=== PATIENT | female | born 1955 | race Caucasian/White ===

== ENCOUNTER 2016-11-11 16:10 | Outpatient (RCR) | payer OTHER ==
[~2016-11-11 16:10] MED LIST: BUSP5TAB59 PO; CYCL5TAB PO; DULO60CA6 PO; HYDR-757 PO; LOSA50TA36 PO; MELO7.5T46 PO; PRD20T PO
== END 2016-11-12 14:32 | disposition home or self-care (01) ==
PROVIDERS: ATTEND Pain Medicine Pain Medicine
DX: M54.5 Low back pain (principal); M53.3 Sacrococcygeal disorders, not elsewhere classified

== ENCOUNTER 2017-03-04 12:23 | Outpatient (RCR) | payer OTHER | END 2017-03-04 17:00 | disposition home or self-care (01) | PROVIDERS: ATTEND Surgery | DX: Z02.71 Encounter for disability determination (principal) ==

== ENCOUNTER → 2018-09-02 | Outpatient (CLI) | payer BC, OTHER ==
[~2018-09-02] MED LIST changes: +HYDR-4226 PO; -HYDR-757 PO; -LOSA50TA36 PO; +LOSA50TA7 PO
--- NOTE | 2018-09-02 12:22 | Diagnostic Imaging Report ---
Indication: Routine screening. Comparison is made with prior mammogram from 11/19/2011. 2-D and 3-D bilateral screening mammography was performed with CAD. Both breasts are heterogeneously dense, limiting the sensitivity of mammography. The parenchymal pattern is stable. No mass or malignant appearing microcalcifications are seen. The axillae are unremarkable. Impression: BI-RADS category one No mammographic features suspicious for malignancy are identified. ACR BI-RADS Category 1: Negative. Result letter will be mailed to the patient. Note: At least 10% of breast cancer is not imaged by mammography. Dictated by: Dictated on workstation # [id number]
== END ==
LOC: RAD 10:53
PROVIDERS: ATTEND Nurse Practitioner
DX: Z12.31 Encounter for screening mammogram for malignant neoplasm of breast (principal)
CPT/HCPCS: 77067

== ENCOUNTER 2018-12-25 09:44 | Inpatient (IN) | payer OTHER, BC ==
[2018-12-25] VITALS (13 sets, daily range): BP systolic 111–156; BP diastolic 58–83
[~2018-12-25] VITALS: Ht 151.1 cm; Wt 45.5 kg
[~2018-12-25 09:44] MED LIST changes: +LOSA50TA63 PO; -LOSA50TA7 PO
--- NOTE | 2018-12-25 09:54 | NUR ---
Assisted Dr. Gonsalez with rectal exam. Pt has good rectal tone and no gross blood.
[2018-12-25 10:06] LABS: HEMOGLOBIN 14.9 G/DL (11.5-16.0); RED CELL DISTRIBUTION WIDTH 13.8 % (10.0-14.5); WHITE BLOOD COUNT 9.2 10^3/uL (4.3-11.0)
[2018-12-25 10:21] LABS: ALANINE AMINOTRANSFERASE 25 U/L (0-55); ALBUMIN 4.1 GM/DL (3.2-4.5); ALKALINE PHOSPHATASE 85 U/L (40-136); BILIRUBIN,DIRECT 0.1 MG/DL (0.0-0.3); BILIRUBIN,INDIRECT 0.3 MG/DL; BILIRUBIN,TOTAL 0.4 MG/DL (0.1-1.0); BUN/CREATININE RATIO 17; CALCIUM 9.1 MG/DL (8.5-10.1); CARBON DIOXIDE 24 MMOL/L (21-32); CHLORIDE 107 MMOL/L (98-107); CREATININE SERUM 0.76 MG/DL (0.60-1.30); GFR ESTIMATED > 60; GLUCOSE 116 MG/DL (70-105); POTASSIUM 4.1 MMOL/L (3.6-5.0); SODIUM 142 MMOL/L (135-145); TOTAL PROTEIN 6.7 GM/DL (6.4-8.2)
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
[2018-12-25] MEDS ORDERED: fentaNYL INJECTION 100 MCG/2 ML AMP IVP STA (10:28)
[2018-12-25] MEDS ORDERED: fentaNYL INJECTION 100 MCG/2 ML AMP ONE (10:28)
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
[2018-12-25 10:30] LABS: BILIRUBIN,URINE NEGATIVE (NEGATIVE); CLARITY,URINE CLEAR; COLOR,URINE YELLOW; GLUCOSE, URINE (UA) NEGATIVE (NEGATIVE); KETONES,URINE NEGATIVE (NEGATIVE); LEUKOCYTE ESTERASE ,URINE NEGATIVE (NEGATIVE); NITRITE,URINE NEGATIVE (NEGATIVE); PH,URINE 6.5 (5-9); PROTEIN,URINE 3+ (NEGATIVE); UROBILINOGEN,URINE NORMAL (NORMAL)
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
[2018-12-25 10:38] LABS: BACTERIA,URINE TRACE /HPF; SQUAMOUS EPITHELIAL CELL,UR RARE /HPF; WBC,URINE RARE /HPF
[2018-12-25] MEDS ORDERED: LIDOCAINE 1% INJ 20 ML 20 ML VIAL INJ ONE (11:00)
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
--- NOTE | 2018-12-25 11:28 | NUR ---
C-COLLAR REMOVED BY RENETTA COYNE AT THIS TIME
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
--- NOTE | 2018-12-25 11:36 | NUR ---
DR GONZALEZ IN ROOM WITH PT
[2018-12-25] MEDS ORDERED: TETANUS,DIPTH,PERTUSS P/F (BOOSTRIX) 0.5 ML VIAL IM ONE (11:45)
[2018-12-25] MEDS ORDERED: ceFAZolin INJECTION 1,000 MG in WATER (STERILE) FOR INJECTION 10 ML IV ONE (11:45)
--- OUTSIDE RECORDS SUMMARY | 2018-12-25 11:55 | XMS REPORT ---
Author Author CHLOE UP Organization e[employer] Address Unknown Phone Unavailable Care Team Providers Care Laser Systems Engineer Name Role Phone CHLOE UP CP Unavailable Allergies, Adverse Reactions, Alerts Substance Reaction Event Type N.K.D.A. Info Not Available Non Drug Allergy Problems Problem Type Condition Code Onset Dates Condition Status Assessment Right shoulder pain M25.511 Active Problem Tobacco abuse Z72.0 Active Assessment Neck pain M54.2 Active Problem Right shoulder pain M25.511 Active Problem Right elbow pain M25.521 Active Problem Neck pain M54.2 Active Problem High blood pressure (not hypertension) R03.0 Active Problem Alcohol abuse F10.10 Active Problem Right knee pain M25.561 Active Problem Anxiety F41.9 Active Assessment High blood pressure (not hypertension) R03.0 Active Assessment Anxiety F41.9 Active Assessment Tobacco abuse Z72.0 Active Assessment Right knee pain M25.561 Active Assessment Alcohol abuse F10.10 Active Assessment Right elbow pain M25.521 Active Medications Medication Code System Code Instructions Start Date End Date Status Dosage ibuprofen NDC 0 Oral PRN not defined Claritin [facility] [address]-79 10 MG Orally Once a day 1 tablet Paxil [facility] [address]-81 20 MG Orally Once a day 1 tablet in the morning Naproxen [facility] [address]-25 500 MG Orally every 12 hrs Aug 22, 2015Aug 1 tablet as needed Ocuvite Adult 50+ [facility] [address]-45 1 tablet Orally not defined immodium NDC 0 not defined Procedures Procedure Coding System Code Date Office Visit, Est Pt., Level 3 CPT-4 66762 Aug 22, 2015 X-RAY EXAM OF NECK SPINE CPT-4 32091 Aug 22, 2015 Vital Signs Date/Time: Aug 22, 2015 Temperature 98.2 F Weight 105.6 lbs Height 59.5 in BMI 20.97 Index Blood Pressure Diastolic 82 mmHg Blood Pressure Systolic 170 mmHg Cardiac Monitoring Heart Rate 100 bpm Results No Known Results Summary Purpose eClinicalWorks Submission
--- OUTSIDE RECORDS SUMMARY | 2018-12-25 11:56 | XMS REPORT ---
Author FRANNY Sibley [facility] [place] eClinical[employer] Address Unknown Phone Unavailable Care Team Providers Care Appliance Installer Name Role Phone FRANNY BUCIO CP Unavailable Allergies, Adverse Reactions, Alerts Substance Reaction Event Type N.K.D.A. Info Not Available Non Drug Allergy Problems Problem Type Condition Code Onset Dates Condition Status Assessment Cervical disc disease M50.90 Active Assessment Depression F32.9 Active Assessment Nicotine dependence F17.200 Active Problem Nicotine dependence F17.200 Active Problem Cervical disc disease M50.90 Active Problem Depression F32.9 Active Problem Arthritis of both hands M19.90 Active Assessment Essential hypertension I10 Active Problem Essential hypertension I10 Active Problem Dyslipidemia E78.5 Active Medications Medication Code System Code Instructions Start Date End Date Status Dosage Losartan Potassium [facility] [address]-58 50 mg Orally Once a day January 22, 2016 1 tablet Cymbalta [facility] [address]-49 60 MG Orally Once a day 1 capsule Vitamin E [facility] [address]-76 400 UNIT Orally Once a day 1 capsule Loperamide A-D [facility] [address]-31 2 MG Orally 8 time(s) a day 1 tablet Multi For Her 50+ [facility] 15[address]-75174 Orally not defined Ocuvite [facility] [address]-28 Orally not defined BusPIRone HCl [facility] [address]-45 5 MG Orally Three times a day 1 tablet Meloxicam [facility] [address]-78 15 MG Orally Once a day 1 tablet Claritin [facility] [address]-89 10 MG Orally Once a day 1 tablet [place] [facility] [address]-81 7.5-325 MG Orally every 4-6 hrs as needed for pain January 17, 2016 February 16, 2016 1 tablet as needed Procedures Procedure Coding System Code Date Office Visit, Est Pt., Level 4 CPT-4 00279 January 22, 2016 Vital Signs Date/Time: January 22, 2016 Temperature 98.9 F Weight 111 lbs Height 59.5 in BMI 22.04 Index Blood Pressure Diastolic 90 mmHg Blood Pressure Systolic 160 mmHg Cardiac Monitoring Heart Rate 68 bpm Results No Known Results Summary Purpose eClinicalWorks Submission
--- OUTSIDE RECORDS SUMMARY | 2018-12-25 11:56 | XMS REPORT ---
Author Author BANDAR MORALES [facility] Address [address] [place] [address] Care Team Providers Care Military Lawyer Name Role Phone BANDAR MORALES Unavailable PROBLEMS Type Condition ICD9-CM Code [id number] Code Onset Dates Condition Status SNOMED Code Problem Essential hypertension I10 Active 85268980 Problem Dyslipidemia E78.5 Active 067171118 Problem Carpal tunnel syndrome G56.00 Active 07852925 Problem Pain in right shoulder M25.511 Active 00548664 Problem Cervical disc disease M50.90 Active 474480498 Problem Arthritis of both hands M19.90 Active 7045088781004898 Problem Depression F32.9 Active 40749297 Problem Nicotine dependence F17.200 Active 26725824 ALLERGIES No Information SOCIAL HISTORY Never Assessed PLAN OF CARE Activity Details Follow Up prn Reason: VITAL SIGNS Height 59.5 in 2016-12-04 Blood pressure systolic 142 mmHg 2016-12-04 Blood pressure diastolic 82 mmHg 2016-12-04 MEDICATIONS Unknown Medications RESULTS No Results PROCEDURES Procedure Date Ordered Result Body Site JOINT INJECTION-INTERMEDIATE JOINT 2016-12-04 N/A DRAIN/INJECT, JOINT/BURSA December 04, 2016 DEPO MEDROL 80 MG/ML December 04, 2016 IMMUNIZATIONS No Known Immunizations MEDICAL (GENERAL) HISTORY Type Description Date Medical History Fuch's dystrophy Medical History lichen sclerosus Medical History Essential hypertension Medical History Carpel Tunnel Surgical History tubal ligation 1988 Hospitalization History childbirth only
--- OUTSIDE RECORDS SUMMARY | 2018-12-25 11:56 | XMS REPORT ---
Author Author FRANNY BUCIO [facility] Address [address] [place] [address] Care Team Providers Care Fire Watcher Name Role Phone FRANNY BUCIO Unavailable PROBLEMS Type Condition ICD9-CM Code [id number] Code Onset Dates Condition Status SNOMED Code Problem Depression F32.9 Active 54040202 Problem Nicotine dependence F17.200 Active 75277919 Problem Dyslipidemia E78.5 Active 829268151 Problem Arthritis of both hands M19.90 Active 6059726911988786 Problem Cervical disc disease M50.90 Active 097552721 Problem Essential hypertension I10 Active 64848386 ALLERGIES Unknown Allergies SOCIAL HISTORY No smoking Hx information available PLAN OF CARE VITAL SIGNS MEDICATIONS Unknown Medications RESULTS No Results PROCEDURES No Known procedures IMMUNIZATIONS No Known Immunizations
--- OUTSIDE RECORDS SUMMARY | 2018-12-25 11:56 | XMS REPORT ---
Author BANDAR Ledesma [facility] eClinicalWorks Address Unknown Phone Unavailable Care Team Providers Care Source Inspector Name Role Phone BANDAR MORALES CP Unavailable Allergies No Known Allergies Problems Problem Type Condition Code Onset Dates Condition Status Problem Dyslipidemia E78.5 Active Problem Arthritis of both hands M19.90 Active Problem Essential hypertension I10 Active Assessment Radiculopathy of cervical spine M54.12 Active Medications Medication Code System Code Instructions Start Date End Date Status Dosage [place] [facility] [address]-39 7.5-325 MG Orally every 4-6 hrs as needed for pain January 17, 2016 February 16, 2016 1 tablet as needed Procedures Procedure Coding System Code Date Office Visit, Est Pt., Level 3 CPT-4 74375 January 17, 2016 Vital Signs Date/Time: January 17, 2016 Blood Pressure Diastolic 78 mmHg Blood Pressure Systolic 174 mmHg Height 59.5 in Results No Known Results Summary Purpose eClinicalWorks Submission
--- OUTSIDE RECORDS SUMMARY | 2018-12-25 11:56 | XMS REPORT ---
Author Author STEVAN CHAVES Organization e[employer] Address Unknown Phone Unavailable Care Team Providers Care Clinical Support Tech Name Role Phone STEVAN CHAVES CP Unavailable Allergies No Known Allergies Problems Problem Type Condition Code Onset Dates Condition Status Problem Tobacco abuse Z72.0 Active Problem Right shoulder pain M25.511 Active Problem Right elbow pain M25.521 Active Problem Neck pain M54.2 Active Problem High blood pressure (not hypertension) R03.0 Active Problem Alcohol abuse F10.10 Active Problem Right knee pain M25.561 Active Problem Anxiety F41.9 Active Medications Medication Code System Code Instructions Start Date End Date Status Dosage Naproxen [facility] [address]-65 500 MG Orally every 12 hrs Aug 22, 2015Aug 1 tablet as needed ibuprofen NDC 0 Oral PRN not defined Paxil [facility] [address]-29 20 MG Orally Once a day 1 tablet in the morning Claritin [facility] [address]-92 10 MG Orally Once a day 1 tablet immodium NDC 0 not defined Ocuvite Adult 50+ [facility] [address]-34 1 tablet Orally not defined Vital Signs Date/Time: Aug 28, 2015 Blood Pressure Systolic 142 mmHg Cardiac Monitoring Heart Rate 80 bpm Height 59.5 in Blood Pressure Diastolic 83 mmHg Results No Known Results Summary Purpose eClinicalWorks Submission
--- OUTSIDE RECORDS SUMMARY | 2018-12-25 11:56 | XMS REPORT ---
Author FRANNY Sibley Organization eClinical[employer] Address Unknown Phone Unavailable Care Team Providers Care Modeling And Simulation Analyst Name Role Phone FRANNY BUCIO CP Unavailable Allergies No Known Allergies Problems Problem Type Condition Code Onset Dates Condition Status Assessment Right shoulder pain M25.511 Active Problem Depression F32.9 Active Problem Nicotine dependence F17.200 Active Problem Pain in right shoulder M25.511 Active Problem Dyslipidemia E78.5 Active Problem Arthritis of both hands M19.90 Active Problem Cervical disc disease M50.90 Active Problem Essential hypertension I10 Active Medications Medication Code System Code Instructions Start Date End Date Status Dosage Hydrocodone-Acetaminophen [facility] [address]-37 7.5-325 MG Orally every 6 hrsprn pain Jun 23, 2016 1 tablet as needed Results No Known Results Summary Purpose eClinicalWorks Submission
--- OUTSIDE RECORDS SUMMARY | 2018-12-25 11:56 | XMS REPORT ---
Author CHLOE Angel Organization eClinicalWorks Address Unknown Phone Unavailable Care Team Providers Care Public Speaker Name Role Phone CHLOE UP CP Unavailable Allergies, Adverse Reactions, Alerts Substance Reaction Event Type N.K.D.A. 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 Problem Neck pain M54.2 Active Problem Anxiety associated with depression F41.8 Active Problem Alcohol abuse F10.10 Active Problem Tobacco abuse Z72.0 Active Problem Anxiety F41.9 Active Problem High blood pressure (not hypertension) R03.0 Active Assessment Essential hypertension I10 Active Assessment Right shoulder pain M25.511 Active Assessment Primary osteoarthritis of left hand M19.042 Active Assessment Anxiety associated with depression F41.8 Active Medications Medication Code System Code Instructions Start Date End Date Status Dosage Meloxicam [facility] [address]-04 15 MG Orally Once a day Oct 09, 2015January 1 tablet Lisinopril [facility] [address]-59 20 MG Orally Once a day Oct 09, 2015 1 tablet Cymbalta [facility] [address]-35 60 MG Orally Once a day Sep 07, 2015 1 capsule Atorvastatin Calcium [facility] [address]-31 40 MG Orally Once a day Sep 12, 2015 1 tablet BusPIRone HCl [facility] [address]-12 5 MG Orally Twice a day as needed for anxiety Sep 07, 2015 1 tablet Procedures Procedure Coding System Code Date Office Visit, Est Pt., Level 3 CPT-4 97554 Oct 09, 2015 Vital Signs Date/Time: Oct 09, 2015 Temperature 98.0 F Weight 106.3 lbs Height 59.5 in BMI 21.11 Index Blood Pressure Diastolic 88 mmHg Blood Pressure Systolic 155 mmHg Cardiac Monitoring Heart Rate 88 bpm Results No Known Results Summary Purpose eClinicalWorks Submission
--- OUTSIDE RECORDS SUMMARY | 2018-12-25 11:56 | XMS REPORT ---
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
--- OUTSIDE RECORDS SUMMARY | 2018-12-25 11:56 | XMS REPORT ---
Author Author FRANNY BUCIO [facility] Address [address] [place] [address] Care Team Providers Care Electroencephalographic Technician Name Role Phone FRANNY BUCIO Unavailable PROBLEMS Type Condition ICD9-CM Code NOC06-SF Code Onset Dates Condition Status SNOMED Code Assessment Other chronic pain G89.29 Jun, Active 62179288 Problem Arthritis of both hands M19.90 Active 2329379470711971 Assessment Cervical disc disease M50.90 Jun, Active 468410300 Problem Pain in right shoulder M25.511 Active 69010793 Problem Depression F32.9 Active 29688769 Problem Essential hypertension I10 Active 46787812 Problem Dyslipidemia E78.5 Active 275720987 Problem Nicotine dependence F17.200 Active 09204993 Problem Cervical disc disease M50.90 Active 646057411 ALLERGIES Substance Reaction Event Type Date Status N.K.D.A. Unknown Non Drug Allergy Jun, Unknown SOCIAL HISTORY No smoking Hx information available PLAN OF CARE VITAL SIGNS Height 59.5 in 2016-06-23 Weight 107 lbs 2016-06-23 Heart Rate 64 bpm 2016-06-23 Respiratory Rate 20 2016-06-23 BMI 21.25 kg/m2 2016-06-23 Blood pressure systolic 132 mmHg 2016-06-23 Blood pressure diastolic 80 mmHg 2016-06-23 MEDICATIONS Medication Instructions Dosage Frequency Start Date End Date Duration Status Multi For Her 50+ Active Hydrocodone-Acetaminophen 7.5-325 MG Orally every 6 hrsprn pain 1 tablet as needed Jun, Active Ocuvite Active Claritin 10 MG Orally Once a day 1 tablet 24h Active BusPIRone HCl 5 mg Orally Three times a day 1 tablet 8h 30 days Active Losartan Potassium 50 mg Orally Once a day 1 tablet 24h 30 Active RESULTS No Results PROCEDURES Procedure Date Ordered Related Diagnosis Body Site Office Visit, Est Pt., Level 4 Jun 23, 2016 IMMUNIZATIONS No Known Immunizations
--- OUTSIDE RECORDS SUMMARY | 2018-12-25 11:56 | XMS REPORT ---
Author Author BANDAR MORALES [facility] Address [address] [place] [address] Care Team Providers Care Insurance Policy Issue Clerk Name Role Phone BANDAR MORALES Unavailable PROBLEMS Type Condition ICD9-CM Code [id number] Code Onset Dates Condition Status SNOMED Code Problem Essential hypertension I10 Active 48231478 Problem Dyslipidemia E78.5 Active 229998675 Problem Carpal tunnel syndrome G56.00 Active 93807677 Problem Pain in right shoulder M25.511 Active 97834827 Problem Cervical disc disease M50.90 Active 437921268 Problem Arthritis of both hands M19.90 Active 4423961039432551 Problem Depression F32.9 Active 84477809 Problem Nicotine dependence F17.200 Active 95911542 ALLERGIES Unknown Allergies SOCIAL HISTORY No smoking Hx information available PLAN OF CARE Activity Details Follow Up 6 Weeks Reason: VITAL SIGNS Height 59.5 in 2016-10-02 Blood pressure systolic 138 mmHg 2016-10-02 Blood pressure diastolic 78 mmHg 2016-10-02 MEDICATIONS Unknown Medications RESULTS No Results PROCEDURES Procedure Date Ordered Related Diagnosis Body Site DRAIN/INJECT, JOINT/BURSA Oct 02, 2016 Office Visit, Est Pt., Level 3 Oct 02, 2016 DEPO MEDROL 80 MG/ML Oct 02, 2016 IMMUNIZATIONS No Known Immunizations
--- OUTSIDE RECORDS SUMMARY | 2018-12-25 11:56 | XMS REPORT ---
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
--- OUTSIDE RECORDS SUMMARY | 2018-12-25 11:56 | XMS REPORT ---
Author CHLOE Angel Organization eClinicalWorks Address Unknown Phone Unavailable Care Team Providers Care Key Cutter Name Role Phone CHLOE UP CP Unavailable [...] Active Problem Right elbow pain M25.521 Active Assessment Right elbow pain M25.521 Active Assessment Right shoulder pain M25.511 Active Assessment Neck pain M54.2 Active Assessment High blood pressure (not hypertension) R03.0 Active Assessment Anxiety associated with depression F41.8 Active Medications No Known Medications Procedures Procedure Coding System Code Date COMPREHEN METABOLIC PANEL CPT-4 81661 Sep 11, 2015 ASSAY THYROID STIM HORMONE CPT-4 44838 Sep 11, 2015 COMPLETE CBC W/AUTO DIFF WBC CPT-4 37992 Sep 11, 2015 VENIPUNCT, ROUTINE* CPT-4 07640 Sep 11, 2015 LIPID PANEL CPT-4 44144 Sep 11, 2015 Results Name Result Date Reference Range Unit Abnormality Flag ROUTINE VENIPUNCTURE Summary Purpose eClinicalWorks Submission
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
--- OUTSIDE RECORDS SUMMARY | 2018-12-25 11:57 | XMS REPORT ---
Author Author BANDAR MORALES [facility] Address [address] [place] [address] Care Team Providers Care Bar And Filler Assembler Name Role Phone BANDAR MORALES Unavailable PROBLEMS Type Condition ICD9-CM Code BOQ80-DC Code Onset Dates Condition Status SNOMED Code Problem Essential hypertension I10 Active 76310288 Problem Dyslipidemia E78.5 Active 355224375 Problem Carpal tunnel syndrome G56.00 Active 44811715 Problem Pain in right shoulder M25.511 Active 86402555 Problem Cervical disc disease M50.90 Active 238574740 Problem Arthritis of both hands M19.90 Active 1514372105697998 Problem Depression F32.9 Active 29404496 Problem Nicotine dependence F17.200 Active 38287227 ALLERGIES No Information SOCIAL HISTORY Never Assessed PLAN OF CARE Activity Details Follow Up prn Reason: VITAL SIGNS Height 59.5 in 2017-02-19 Blood pressure systolic 128 mmHg 2017-02-19 Blood pressure diastolic 78 mmHg 2017-02-19 MEDICATIONS Unknown Medications RESULTS No Results PROCEDURES Procedure Date Ordered Result Body Site DRAIN/INJECT, JOINT/BURSA February 19, 2017 DEPO MEDROL 80 MG/ML February 19, 2017 IMMUNIZATIONS No Known Immunizations MEDICAL (GENERAL) HISTORY Type Description Date Medical History Fuch's dystrophy Medical History lichen sclerosus Medical History Essential hypertension Medical History Carpel Tunnel Surgical History tubal ligation 1988 Hospitalization History childbirth only
--- OUTSIDE RECORDS SUMMARY | 2018-12-25 11:57 | XMS REPORT ---
Author CHLOE Angel Organization eClinicalWorks Address Unknown Phone Unavailable Care Team Providers Care Dispenser Operator Name Role Phone CHLOE UP CP Unavailable [...] Problem Right elbow pain M25.521 Active Assessment Primary osteoarthritis, right hand M19.041 Active Assessment High blood pressure (not hypertension) R03.0 Active Assessment Neck pain M54.2 Active Assessment Alcohol abuse F10.10 Active Assessment Right elbow pain M25.521 Active Assessment Tobacco abuse Z72.0 Active Assessment Right shoulder pain M25.511 Active Assessment Anxiety associated with depression F41.8 Active Medications Medication Code System Code Instructions Start Date End Date Status Dosage ibuprofen NDC 0 Oral PRN not defined immodium NDC 0 not defined Cymbalta [facility] [address]-23 60 MG Orally Once a day Sep 07, 2015 1 capsule BusPIRone HCl [facility] [address]-14 5 MG Orally Twice a day as needed for anxiety Sep 07, 2015 1 tablet Procedures Procedure Coding System Code Date Office Visit, Est Pt., Level 3 CPT-4 25253 Sep 07, 2015 Vital Signs Date/Time: Sep 07, 2015 Temperature 98.5 F Weight 105 lbs Height 59.5 in BMI 20.85 Index Blood Pressure Diastolic 78 mmHg Blood Pressure Systolic 158 mmHg Cardiac Monitoring Heart Rate 92 bpm Results No Known Results Summary Purpose eClinicalWorks Submission
--- OUTSIDE RECORDS SUMMARY | 2018-12-25 11:57 | XMS REPORT | Continuity of Care Document ---
Author Author [facility] Organization [facility] Address Unknown Phone Unavailable Allergies Active Description Code Type Severity Reaction Onset Reported/Identified Relationship to Patient Clinical Status Yes No Known Drug Allergies [id number] Drug Allergy Unknown N/A 03/17/2016 Medications There is no data. Problems Date Dx Coded Attending Type Code Diagnosis Diagnosed By LEONCIO SCHAEFFER MD Ot M54.2 CERVICALGIA 09/03/1431 LEONCIO SCHAEFFER MD Ot M53.3 SACROCOCCYGEAL DISORDERS, NOT ELSEWHERE 09/03/1431 LEONCIO SCHAEFFER MD Ot M54.5 LOW BACK PAIN 12/19/2015 Ot V76.12 12/19/2015 Ot V76.12 12/20/2015 BANDAR MORALES TECHNOLOGY EDUCATION INSTRUCTOR Ot M48.02 12/20/2015 BANDAR MORALES TECHNOLOGY EDUCATION INSTRUCTOR Ot M50.31 12/20/2015 BANDAR MORALES TECHNOLOGY EDUCATION INSTRUCTOR Ot M50.32 12/21/2015 BANDAR MORALES TECHNOLOGY EDUCATION INSTRUCTOR Ot M48.02 12/21/2015 BANDAR MORALES TECHNOLOGY EDUCATION INSTRUCTOR Ot M50.31 12/21/2015 BANDAR MORALES TECHNOLOGY EDUCATION INSTRUCTOR Ot M50.32 12/21/2015 BANDAR MORALES TECHNOLOGY EDUCATION INSTRUCTOR Ot M48.02 12/21/2015 BANDAR MORALES TECHNOLOGY EDUCATION INSTRUCTOR Ot M50.31 12/21/2015 BANDAR MORALES TECHNOLOGY EDUCATION INSTRUCTOR Ot M50.32 12/26/2015 BANDAR MORALES TECHNOLOGY EDUCATION INSTRUCTOR Ot M48.02 12/26/2015 BANDAR MORALES TECHNOLOGY EDUCATION INSTRUCTOR Ot M50.31 12/26/2015 BANDAR MORALES TECHNOLOGY EDUCATION INSTRUCTOR Ot M50.32 02/19/2016 Ot V76.12 OTH SCREEN MAMMO-MALIGN NEOPLASM OF RUPESH 02/19/2016 Ot V76.12 OTH SCREEN MAMMO-MALIGN NEOPLASM OF RUPESH 02/19/2016 BANDAR MORALES TECHNOLOGY EDUCATION INSTRUCTOR Ot M48.02 SPINAL STENOSIS, CERVICAL REGION 02/19/2016 ANDREW BANDAR D TECHNOLOGY EDUCATION INSTRUCTOR Ot M50.31 OTHER CERVICAL DISC DEGENERATION, HIGH 02/19/2016 BANDAR MORALES TECHNOLOGY EDUCATION INSTRUCTOR Ot M50.32 OTHER CERVICAL DISC DEGENERATION, MID-CE 02/20/2016 BANDAR MORALES TECHNOLOGY EDUCATION INSTRUCTOR Ot M48.02 SPINAL STENOSIS, CERVICAL REGION 02/20/2016 BANDAR MORALES TECHNOLOGY EDUCATION INSTRUCTOR Ot M50.31 OTHER CERVICAL DISC DEGENERATION, HIGH 02/20/2016 MORALESBANDAR Trejo TECHNOLOGY EDUCATION INSTRUCTOR Ot M50.32 OTHER CERVICAL DISC DEGENERATION, MID-CE 02/26/2016 MORALESBANDAR Trejo TECHNOLOGY EDUCATION INSTRUCTOR Ot M48.02 SPINAL STENOSIS, CERVICAL REGION 02/26/2016 BANDAR MORALES TECHNOLOGY EDUCATION INSTRUCTOR Ot M50.31 OTHER CERVICAL DISC DEGENERATION, HIGH 02/26/2016 BANDAR MORALES TECHNOLOGY EDUCATION INSTRUCTOR Ot M50.32 OTHER CERVICAL DISC DEGENERATION, MID-CE 03/14/2016 LEONCIO SCHAEFFER MD Ot M54.2 CERVICALGIA 03/17/2016 RENETTA COYNE APRN Ot S50.361A INSECT BITE (NONVENOMOUS) OF RIGHT ELBOW 03/17/2016 RENETTA COYNE APRN Ot W57.XXXA BIT/STUNG BY NONVENOM INSECT OTH NONVE 03/17/2016 RENETTA COYNE APRN Ot Y92.34 SWIMMING POOL (PUBLIC) PLACE 03/17/2016 RENETTA COYNE APRN Ot Y99.8 OTHER EXTERNAL CAUSE STATUS 03/17/2016 Ot V76.12 OTH SCREEN MAMMO-MALIGN NEOPLASM OF RUPESH 03/17/2016 BANDAR MORALES TECHNOLOGY EDUCATION INSTRUCTOR Ot M48.02 SPINAL STENOSIS, CERVICAL REGION 03/17/2016 BANDAR MORALES TECHNOLOGY EDUCATION INSTRUCTOR Ot M50.31 OTHER CERVICAL DISC DEGENERATION, HIGH 03/17/2016 BANDAR MORALES Ot M50.32 OTHER CERVICAL DISC DEGENERATION, MID-CE 09/18/2016 LEONCIO SCHAEFFER MD Ot M53.3 SACROCOCCYGEAL DISORDERS, NOT ELSEWHERE 09/18/2016 LEONCIO SCHAEFFER MD Ot M54.5 LOW BACK PAIN 09/23/2016 LEONCIO SCHAEFFER MD Ot M53.3 SACROCOCCYGEAL DISORDERS, NOT ELSEWHERE 09/23/2016 LEONCIO SCHAEFFER MD Ot M54.5 LOW BACK PAIN 09/26/2016 LEONCIO SCHAEFFER MD Ot M53.3 SACROCOCCYGEAL DISORDERS, NOT ELSEWHERE 09/26/2016 LEONCIO SCHAEFFER MD Ot M54.5 LOW BACK PAIN 10/04/2016 Ot V76.12 OTH SCREEN MAMMO-MALIGN NEOPLASM OF RUPESH 10/04/2016 BANDAR MORALES Ot M48.02 SPINAL STENOSIS, CERVICAL REGION 10/04/2016 BANDAR MORALES Ot M50.31 OTHER CERVICAL DISC DEGENERATION, HIGH 10/04/2016 BANDAR MORALES Ot M50.32 OTHER CERVICAL DISC DEGENERATION, MID-CE 10/04/2016 LEONCIO SCHAEFFER MD, Ot M53.3 SACROCOCCYGEAL DISORDERS, NOT ELSEWHERE 10/04/2016 LEONCIO SCHAEFFER MD Ot M54.5 LOW BACK PAIN 10/04/2016 LEONCIO SCHAEFFER MD, Ot M53.3 SACROCOCCYGEAL DISORDERS, NOT ELSEWHERE 10/04/2016 LEONCIO SCHAEFFER MD, Ot M54.5 LOW BACK PAIN 10/04/2016 RENETTA COYNE AP OPERATOR Ot S52.514A NONDISP FX OF RIGHT RADIAL STYLOID PROCE 10/04/2016 RENETTA COYNE AP OPERATOR Ot S52.611A DISP FX OF RIGHT ULNA STYLOID PROCESS, I 10/04/2016 RENETTA COYNE AP OPERATOR Ot S69.91XA UNSP INJURY OF RIGHT WRIST, HAND AND FIN 10/04/2016 RENETTA COYNE AP OPERATOR Ot W10.9XXA FALL (ON) (FROM) UNSPECIFIED STAIRS AND 10/04/2016 RENETTA COYNE AP OPERATOR Ot Y99.8 OTHER EXTERNAL CAUSE STATUS 10/04/2016 Ot V76.12 OTH SCREEN MAMMO-MALIGN NEOPLASM OF RUPESH 10/04/2016 BANDAR MORALES Ot M48.02 SPINAL STENOSIS, CERVICAL REGION 10/04/2016 BANDAR MORALES Ot M50.31 OTHER CERVICAL DISC DEGENERATION, HIGH 10/04/2016 BANDAR MORALES Ot M50.32 OTHER CERVICAL DISC DEGENERATION, MID-CE 10/04/2016 LEONCIO SCHAEFFER MD Ot M53.3 SACROCOCCYGEAL DISORDERS, NOT ELSEWHERE 10/04/2016 LEONCIO SCHAEFFER MD Ot M54.5 LOW BACK PAIN 10/04/2016 LEONCIO SCHAEFFER MD, Ot M53.3 SACROCOCCYGEAL DISORDERS, NOT ELSEWHERE 10/04/2016 LEONCIO SCHAEFFER MD, Ot M54.5 LOW BACK PAIN 10/08/2016 RENETTA COYNE APRN Ot S52.514A NONDISP FX OF RIGHT RADIAL STYLOID PROCE 10/08/2016 RENETTA COYNE APRN Ot S52.611A DISP FX OF RIGHT ULNA STYLOID PROCESS, I 10/08/2016 RENETTA COYNE APRN Ot S69.91XA UNSP INJURY OF RIGHT WRIST, HAND AND FIN 10/08/2016 RENETTA COYNE APRN Ot W10.9XXA FALL (ON) (FROM) UNSPECIFIED STAIRS AND 10/08/2016 RENETTA COYNE APRN Ot Y99.8 OTHER EXTERNAL CAUSE STATUS 10/27/2016 LEONCIO SCHAEFFER MD, Ot M53.3 SACROCOCCYGEAL DISORDERS, NOT ELSEWHERE 10/27/2016 LEONCIO SCHAEFFER MD, Ot M54.5 LOW BACK PAIN 10/29/2016 LEONCIO SCHAEFFER MD, Ot M53.3 SACROCOCCYGEAL DISORDERS, NOT ELSEWHERE 10/29/2016 LEONCIO SCHAEFFER MD Ot M54.5 LOW BACK PAIN 11/12/2016 LEONCIO SCHAEFFER MD, Ot M53.3 SACROCOCCYGEAL DISORDERS, NOT ELSEWHERE 11/12/2016 LEONCIO SCHAEFFER MD Ot M54.5 LOW BACK PAIN 02/13/2017 Ot V76.12 OT SCREEN MAMMO-MALIGN NEOPLASM OF RUPESH 02/13/2017 BANDAR MORALESP Ot M48.02 SPINAL STENOSIS, CERVICAL REGION 02/13/2017 BANDAR MORALESP Ot M50.31 OTHER CERVICAL DISC DEGENERATION, HIGH 02/13/2017 BANDAR MORALESP Ot M50.32 OTHER CERVICAL DISC DEGENERATION, MID-CE 02/13/2017 LEONCIO SCHAEFFER MD Ot M53.3 SACROCOCCYGEAL DISORDERS, NOT ELSEWHERE 02/13/2017 LEONCIO SCHAEFFER MD Ot M54.5 LOW BACK PAIN 03/05/2017 YOGI LUNDBERG, RONAN Nguyen ([facility]) Ot Z02.71 ENCOUNTER FOR DISABILITY DETERMINATION 09/02/2018 LEONCIO SCHAEFFER MD, Ot M53.3 SACROCOCCYGEAL DISORDERS, NOT ELSEWHERE 09/02/2018 LEONCIO SCHAEFFER MD Ot M54.5 LOW BACK PAIN 09/03/2018 ALAYNA WORTHY Ot Z12.31 ENCNTR SCREEN MAMMOGRAM FOR MALIGNANT NE Procedures There is no data. Results There is no data. Encounters ACCT No. Visit Date/Time Discharge Status Pt. Type Provider Facility Loc./Unit Complaint [id number] 09/02/2018 10:53:00 09/02/2018 23:59:59 CLS Outpatient ALAYNA WORTHY [facility] RAD SCREENING [id number] 03/04/2017 12:23:00 03/04/2017 17:00:00 DIS Outpatient RONAN CALIX MD (DDU) [facility] REHAB CONGENITAL DEFORMITY OF HANDS/TOES;FUCHS DYSTROPHY [id number] 11/11/2016 16:10:00 11/12/2016 14:32:00 DIS Outpatient LEONCIO SCHAEFFER MD [facility] REHAB LUMBAGO; SACROCOCCYGEAL DISORDER [id number] 10/04/2016 15:48:00 10/04/2016 17:33:00 DIS Emergency RENETTA COYNE AP OPERATOR [facility] ER R WRIST INJ [id number] 09/17/2016 15:35:00 09/17/2016 23:59:59 CLS Outpatient LEONCIO SCHAEFFER MD [facility] RAD XR LUMBAR SPINE, XR SACROLIAC JOINTS [id number] 03/17/2016 22:01:00 03/17/2016 22:27:00 DIS Emergency RENETTA COYNE AP OPERATOR [facility] ER INSECT BITE [id number] 03/13/2016 12:52:00 03/14/2016 09:36:00 DIS Outpatient LEONCIO SCHAEFFER MD [facility] REHAB CERVICALGIA [id number] 12/19/2015 13:11:00 12/19/2015 23:59:59 CLS Outpatient BANDAR MORALES [facility] RAD DISC HERNIATION [id number] 11/19/2011 06:57:00 Document Registration [id number] 09/13/2010 09:34:00 Document Registration
--- OUTSIDE RECORDS SUMMARY | 2018-12-25 11:57 | XMS REPORT ---
Author Author BANDAR MORALES [facility] Address [address] [place] [address] Care Team Providers Care Typing Section Chief Name Role Phone BANDAR MORALES Unavailable PROBLEMS Type Condition ICD9-CM Code HPW36-VY Code Onset Dates Condition Status SNOMED Code Problem Essential hypertension I10 Active 78284969 Problem Dyslipidemia E78.5 Active 725097453 Problem Carpal tunnel syndrome G56.00 Active 03025024 Problem Pain in right shoulder M25.511 Active 25714833 Problem Cervical disc disease M50.90 Active 215442519 Problem Arthritis of both hands M19.90 Active 5482938920085242 Problem Depression F32.9 Active 45232770 Problem Nicotine dependence F17.200 Active 11324734 ALLERGIES No Information SOCIAL HISTORY Never Assessed PLAN OF CARE Activity Details Follow Up prn Reason: VITAL SIGNS Height 59.5 in 2016-11-06 Blood pressure systolic 138 mmHg 2016-11-06 Blood pressure diastolic 78 mmHg 2016-11-06 MEDICATIONS Unknown Medications RESULTS Name Result Date Reference Range Xray : Wrist, Right 3 views (IN HOUSE) 2016-11-06 PROCEDURES Procedure Date Ordered Result Body Site X-RAY EXAM OF WRIST Nov 06, 2016 IMMUNIZATIONS No Known Immunizations MEDICAL (GENERAL) HISTORY Type Description Date Medical History Fuch's dystrophy Medical History lichen sclerosus Medical History Essential hypertension Medical History Carpel Tunnel Surgical History tubal ligation 1988 Hospitalization History childbirth only
--- OUTSIDE RECORDS SUMMARY | 2018-12-25 11:57 | XMS REPORT ---
Author CHLOE Angel Organization [employer] Address Unknown Phone Unavailable Care Team Providers Care Belt Puncher Name Role Phone CHLOE UP CP Unavailable [...] Problem Right elbow pain M25.521 Active Medications Medication Code System Code Instructions Start Date End Date Status Dosage Atorvastatin Calcium [facility] [address]-61 40 MG Orally Once a day Sep 12, 2015 1 tablet Results No Known Results Summary Purpose [employer] Submission
--- OUTSIDE RECORDS SUMMARY | 2018-12-25 11:57 | XMS REPORT ---
Author Author SAMANTHA Brar [facility] Address [address] [place] [address] Care Team Providers Care Newspaper Clipper Name Role Phone schuylerCARLOSKELVIN SAMANTHA Unavailable PROBLEMS Type Condition ICD9-CM Code YQO95-PT Code Onset Dates Condition Status SNOMED Code Problem Essential hypertension I10 Active 50585157 Problem Dyslipidemia E78.5 Active 437508430 Problem Carpal tunnel syndrome G56.00 Active 22823211 Problem Pain in right shoulder M25.511 Active 33313078 Problem Cervical disc disease M50.90 Active 180000852 Problem Arthritis of both hands M19.90 Active 4479993380448157 Problem Depression F32.9 Active 14637111 Problem Nicotine dependence F17.200 Active 52696042 ALLERGIES No Information ENCOUNTERS Encounter Location Date Diagnosis [facility] [address] [address] Apr, [facility] IN [facility] [address] [address] Apr, Eye injury, non-penetrating, right, initial encounter S05.91XA [place] [address] [address] February, Impingement syndrome of right shoulder M75.41 [place] [address] [address] Dec, Impingement syndrome of right shoulder M75.41 and Carpal tunnel syndrome G56.00 [place] [address] [address] 02 Nov, 2016 Impingement syndrome of right shoulder M75.41 and Displaced fracture of distal end of right radius with routine healing, subsequent encounter S52.501D [place] [address] [place] [id number] [place] [address] 16 Oct, 2016 [place] [address] [address] Sep, Impingement syndrome of right shoulder M75.41 [place] [address] [place] [id number] [place] [address] 26 Jul, 2016 Right shoulder pain M25.511 [place] [address] [address] 20 Jun, 2016 Pain in right shoulder M25.511 ; Other chronic pain G89.29 and Pain in left hip M25.552 [place] [address] [address] 19 Jun, 2016 Cervical disc disease M50.90 ; Essential hypertension I10 ; Pain in right shoulder M25.511 ; Other chronic pain G89.29 and Dyslipidemia E78.5 [place] [address] [address] 08 Jun, 2016 [place] [address] [address] 30 Mar, 2016 [place] [address] [address] 03 Mar, 2016 Essential hypertension I10 and Depression F32.9 [place] [address] [address] 02 Mar, 2016 Impingement syndrome of right shoulder M75.41 and Superior glenoid labrum lesion of right shoulder, subsequent encounter S43.431D [place] [address] [address] 19 Jan, 2016 Essential hypertension I10 ; Depression F32.9 ; Nicotine dependence F17.200 and Cervical disc disease M50.90 [place] [address] [address] 14 Jan, 2016 Radiculopathy of cervical spine M54.12 [place] [address] [id number] [id number] 13 Jan, 2016 Encounter for dental examination Z01.20 [place] [address] [place] [id number] [place] [address] Dec, Carpal tunnel syndrome G56.00 and Cervical disc herniation M50.20 [place] [address] [place] [address] Dec, Cervical disc herniation M50.20 ; Impingement syndrome of right shoulder M75.41 and Carpal tunnel syndrome G56.00 [place] [address] [place] [address] Nov, Essential hypertension I10 ; Anxiety associated with depression F41.8 ; Tobacco abuse Z72.0 ; Dyslipidemia E78.5 ; Arthritis of both hands M19.90 ; Pain in right hand M79.641 ; Pain of left hand M79.642 ; Pain in right wrist M25.531 ; Wrist pain, left M25.532 ; History of alcohol abuse Z87.898 ; Right shoulder pain M25.511 ; Right arm pain M79.601 and 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 [place] [address] [place] [address] 15 Nov, 2015 Essential hypertension I10 ; Wrist pain, left M25.532 ; Alcohol abuse F10.10 ; Anxiety associated with depression F41.8 ; Tobacco abuse Z72.0 ; Dyslipidemia E78.5 ; Arthritis of both hands M19.90 ; Pain in right hand M79.641 ; Pain of left hand M79.642 and Pain in right wrist M25.531 [place] [address] [place] [address] Nov, Essential hypertension I10 ; Alcohol abuse F10.10 ; Anxiety associated with depression F41.8 ; Tobacco abuse Z72.0 ; Dyslipidemia E78.5 ; Arthritis of both hands M19.90 ; Pain in right hand M79.641 ; Pain of left hand M79.642 ; Pain in right wrist M25.531 and Wrist pain, left M25.532 [place] [address] [place] [address] Oct, Acute upper respiratory infection, unspecified J06.9 [place] [address] [place] [id number] [place] [address] Oct, Primary osteoarthritis, right hand M19.041 ; Alcohol abuse F10.10 ; Tobacco abuse Z72.0 ; Anxiety associated with depression F41.8 ; Primary osteoarthritis of left hand M19.042 ; Right shoulder pain M25.511 and Essential hypertension I10 [place] [address] [place] [id number] [place] [address] Sep, [place] [address] [place] [id number] [place] [address] Sep, [place] [address] [place] [id number] [place] [address] Sep, Anxiety associated with depression F41.8 ; Neck pain M54.2 ; Right shoulder pain M25.511 ; Right elbow pain M25.521 and High blood pressure (not hypertension) R03.0 [place] [address] [place] [address] Sep, Anxiety associated with depression F41.8 ; Tobacco abuse Z72.0 ; Alcohol abuse F10.10 ; Neck pain M54.2 ; Right shoulder pain M25.511 ; Right elbow pain M25.521 ; High blood pressure (not hypertension) R03.0 and Primary osteoarthritis, right hand M19.041 [facility] [address] [address] Aug, [facility] [address] [place] [id number] [place] [address] Aug, Neck pain M54.2 ; Right shoulder pain M25.511 ; Right elbow pain M25.521 ; Right knee pain M25.561 ; Anxiety F41.9 ; High blood pressure (not hypertension) R03.0 ; Alcohol abuse F10.10 and Tobacco abuse Z72.0 [facility] [address] [facility] [id number] [place] [id number] Mar, Dental examination V72.2 IMMUNIZATIONS No Known Immunizations SOCIAL HISTORY Never Assessed REASON FOR VISIT PLAN OF CARE VITAL SIGNS MEDICATIONS Unknown Medications RESULTS No Results PROCEDURES No Known procedures INSTRUCTIONS MEDICATIONS ADMINISTERED No Known Medications MEDICAL (GENERAL) HISTORY Type Description Date Medical History Fuch's dystrophy Medical History lichen sclerosus Medical History Essential hypertension Medical History Carpel Tunnel Surgical History tubal ligation 1988 Hospitalization History childbirth only
--- OUTSIDE RECORDS SUMMARY | 2018-12-25 11:57 | XMS REPORT ---
Author Author ANJALI PEÑA [facility] Address [address] [place] [address] Care Team Providers Care It Help Desk Technician Name Role Phone ANJALI PEÑA Unavailable PROBLEMS Type Condition ICD9-CM Code MFW57-MU Code Onset Dates Condition Status SNOMED Code Assessment Other chronic pain G89.29 Jun, Active 00374485 Problem Arthritis of both hands M19.90 Active 8318791075284365 Assessment Pain in right shoulder M25.511 Jun, Active 77221915 Assessment Pain in left hip M25.552 Jun, Active 14974692 Problem Pain in right shoulder M25.511 Active 95783929 Problem Depression F32.9 Active 96347187 Problem Essential hypertension I10 Active 68275532 Problem Dyslipidemia E78.5 Active 104648990 Problem Nicotine dependence F17.200 Active 96776786 Problem Cervical disc disease M50.90 Active 340133099 ALLERGIES Substance Reaction Event Type Date Status N.K.D.A. Unknown Non Drug Allergy Jun, Unknown SOCIAL HISTORY No smoking Hx information available PLAN OF CARE VITAL SIGNS Height 59.5 in 2016-06-24 Weight 107 lbs 2016-06-24 Heart Rate 64 bpm 2016-06-24 Respiratory Rate 16 2016-06-24 BMI 21.25 kg/m2 2016-06-24 Blood pressure systolic 122 mmHg 2016-06-24 Blood pressure diastolic 78 mmHg 2016-06-24 MEDICATIONS Medication Instructions Dosage Frequency Start Date End Date Duration Status Claritin 10 MG Orally Once a day 1 tablet 24h Active BusPIRone HCl 5 mg Orally Three times a day 1 tablet 8h 30 days Active Ocuvite Active Multi For Her 50+ Active Hydrocodone-Acetaminophen 7.5-325 MG Orally every 6 hrsprn pain 1 tablet as needed Jun, Active Losartan Potassium 50 mg Orally Once a day 1 tablet 24h 30 Active RESULTS No Results PROCEDURES Procedure Date Ordered Related Diagnosis Body Site JOINT INJECTION-LARGE JOINT 2016-06-24 N/A DRAIN/INJECT, JOINT/BURSA Jun 24, 2016 Office Visit, Est Pt., Level 2 Jun 24, 2016 IMMUNIZATIONS No Known Immunizations
[2018-12-25] MEDS ORDERED: HYDROmorphone 2 MG/ML VIAL (DILAUDID) IV ONE (12:00)
[2018-12-25] MEDS ORDERED: ceFAZolin INJECTION 1,000 MG ONE (12:12)
[2018-12-25] MEDS ORDERED: WATER (STERILE) FOR INJECTION 10 ML ONE (12:12)
[2018-12-25 14:12] LABS: HEMOGLOBIN 14.3 G/DL (11.5-16.0); MEAN PLATELET VOLUME 10.1 FL (7.4-10.4); RED CELL DISTRIBUTION WIDTH 13.9 % (10.0-14.5); WHITE BLOOD COUNT 18.7 10^3/uL (4.3-11.0)
[2018-12-25] MEDS: fentaNYL INJECTION 100 MCG/2 ML AMP IV PRN ×5 (14:41→22:38)
[2018-12-25] MEDS ORDERED: ONDANSETRON 4 MG/2 ML (SDV) Z0FRAN IV PRN (14:45)
[2018-12-25] MEDS ORDERED: FLU QUADRIvalent (5+ YOA) 2018-2019 (AFLURIA) 0.5 ML IM ONE (14:45)
[2018-12-25] MEDS ORDERED: NS 1000 ML IV BAG IV SCH (17:15)
--- NOTE | 2018-12-25 17:51 | NUR ---
CALL PLACED TO EICU REQUESTING STRONGER PAIN MEDICATION ET ADVANCE OF DIET. AWAITING RESPONSE FROM PHYSICIAN
[2018-12-25] MEDS ORDERED: HYDROcodone/APAP 5 MG/325 MG (LORTAB) TAB PO PRN (18:15)
[2018-12-25] MEDS: NS IV 1000 ML 1,000 ML IV SCH (18:47)
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
[2018-12-25] MEDS ORDERED: RT-ALBUTEROL/IPRATROPIUM 3 ML (DUONEB) VIAL INH SCH (21:00)
[2018-12-25] MEDS: HYDROcodone/APAP 5 MG/325 MG (LORTAB) TAB PO PRN (22:37)
[2018-12-26] VITALS (12 sets, daily range): BP systolic 119–165; BP diastolic 61–85
[2018-12-26] MEDS: HYDROcodone/APAP 5 MG/325 MG (LORTAB) TAB PO PRN ×3 (01:54→11:25)
[2018-12-26] MEDS: fentaNYL INJECTION 100 MCG/2 ML AMP IV PRN ×4 (01:54→11:53)
[2018-12-26 03:55] LABS: BASOPHILS % (AUTO) 0 % (0-10); EOSINOPHILS # (AUTO) 0.1 10^3/uL (0.0-0.3); EOSINOPHILS % (AUTO) 1 % (0-10); HEMATOCRIT 36 % (35-52); HEMOGLOBIN 12.2 G/DL (11.5-16.0); LYMPHOCYTES # (AUTO) 1.7 X 10^3 (1.0-4.0); LYMPHOCYTES % (AUTO) 17 % (12-44); MEAN CORPUSCULAR HEMOGLOBIN 32 PG (25-34); MEAN CORPUSCULAR HGB CONC 34 G/DL (32-36); MEAN CORPUSCULAR VOLUME 96 FL (80-99); MEAN PLATELET VOLUME 10.1 FL (7.4-10.4); MONOCYTES % (AUTO) 10 % (0-12); NEUTROPHILS # (AUTO) 7.1 X 10^3 (1.8-7.8); NEUTROPHILS % (AUTO) 72 % (42-75); PLATELET COUNT 190 10^3/uL (130-400); RED CELL DISTRIBUTION WIDTH 14.1 % (10.0-14.5); WHITE BLOOD COUNT 9.8 10^3/uL (4.3-11.0)
[2018-12-26 04:27] LABS: BUN/CREATININE RATIO 16; CALCIUM 8.3 MG/DL (8.5-10.1); CARBON DIOXIDE 22 MMOL/L (21-32); CHLORIDE 107 MMOL/L (98-107); CREATININE SERUM 0.62 MG/DL (0.60-1.30); GFR ESTIMATED > 60; GLUCOSE 102 MG/DL (70-105); MAGNESIUM 2.1 MG/DL (1.8-2.4); PHOSPHORUS 3.6 MG/DL (2.3-4.7); POTASSIUM 3.8 MMOL/L (3.6-5.0); SODIUM 139 MMOL/L (135-145)
[2018-12-26] MEDS ORDERED: POTASSIUM CL 10MEQ/50ML IVPB 50 ML IV SCH (06:00)
[2018-12-26] MEDS ORDERED: MAGNESIUM 1 GM/100 ML IVPB 100 ML IV SCH (06:00)
[2018-12-26] MEDS ORDERED: KCL 20 MEQ TAB (K-DUR) PO SCH (06:00)
[2018-12-26] MEDS: NS IV 1000 ML 1,000 ML IV SCH (08:50)
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
--- NOTE | 2018-12-26 10:56 | Progress Note (SOAP) ---
Subjective Date Seen by a Provider: Dec 26, 2018 Time Seen by a Provider: 10:00 Subjective/Events-last exam reports pain over the medial aspect of the left groin. Vital signs stable. Review of Systems General: No Chills, No Night Sweats, No Fatigue, No Malaise HEENT: No Head Aches, No Eye Pain, No Ear Pain, No Dysphasia, No Sinus Congestion, No Post Nasal Drip, No Sore Throat Pulmonary: Cough Cardiovascular: No: Chest Pain, Palpitations, Orthopnea, Paroxysmal Noc. Dyspnea, Edema, Lt Headedness Gastrointestinal: No: Nausea, Vomiting, Abdominal Pain, Diarrhea, Constipation , Melena, Hematochezia Genitourinary: No Dysuria, No Frequency, No Incontinence, No Hematuria, No Retention Musculoskeletal: other Neurological: No: Weakness, Numbness, Incoordination, Change in speech, Confusion, Seizures, Other Objective Exam Vital Signs Date Time Temp Pulse Resp B/P (MAP) Pulse Ox O2 Delivery O2 Flow Rate FiO2 12/26/18 10:00 80 42 165/85 (111) 94 Room Air 12/26/18 09:00 70 14 149/74 (99) 94 Room Air 12/26/18 08:58 96 Room Air 12/26/18 08:00 65 13 122/66 (84) 92 Room Air 12/26/18 07:00 98.1 12/26/18 07:00 72 12/26/18 07:00 70 18 136/81 (99) 95 Room Air 12/26/18 06:00 68 17 128/64 (85) 93 Room Air 12/26/18 05:00 71 17 126/64 (84) 95 Room Air 12/26/18 04:00 96 Room Air 12/26/18 04:00 98.9 12/26/18 04:00 70 17 123/61 (81) 93 Room Air 12/26/18 03:00 70 23 129/67 (87) 92 Room Air 12/26/18 02:00 69 23 155/81 (105) 98 Room Air 12/26/18 01:00 70 23 119/64 (82) 93 Room Air 12/26/18 01:00 74 12/26/18 00:00 96 Room Air 12/26/18 00:00 68 19 124/69 (87) 94 Room Air 12/26/18 00:00 97.8 12/25/18 23:00 79 22 156/74 (101) 95 Room Air 12/25/18 22:00 71 17 111/62 (78) 94 Room Air 12/25/18 21:00 80 22 119/58 (78) 92 Room Air 12/25/18 20:11 95 Room Air 12/25/18 20:00 80 23 118/76 (90) 94 Room Air 12/25/18 20:00 98.0 12/25/18 20:00 96 Room Air 12/25/18 19:00 86 12/25/18 19:00 84 20 126/73 (90) 95 Room Air 12/25/18 18:00 88 26 111/79 (90) 94 Room Air 12/25/18 17:06 88 95 21 12/25/18 17:00 85 28 124/68 (86) 94 Room Air 12/25/18 16:00 88 18 135/67 (89) 95 Room Air 12/25/18 16:00 97 Room Air 12/25/18 15:00 79 8 133/83 (100) 94 Room Air 12/25/18 14:45 80 10 134/78 (96) 94 Room Air 12/25/18 14:44 78 12/25/18 14:06 94 Room Air 12/25/18 14:00 70 15 95 Room Air 12/25/18 13:45 72 15 140/66 (90) 94 Room Air 12/25/18 13:30 98.4 12/25/18 13:30 65 9 130/78 (95) 94 Room Air 12/25/18 13:10 96.9 71 15 121/68 (85) 94 Room Air I & O 12/26/18 07:00 Intake Total 970 ml Output Total 800 ml Balance 170 ml Capillary Refill : Less Than 3 SecondsLess Than 3 Seconds General Appearance: Anxious Neck: Normal Inspection Respiratory: Lungs Clear Cardiovascular: Regular Rate, Rhythm Gastrointestinal: non tender, soft Extremity: Other Neurologic/Psychiatric: Alert, Oriented x3 Other comments laceration over the face intact. No obvious abnormality over the medial aspect of the left thigh. Able to move both hip joints. No neurologic deficit. Pain along the left chest wall due to rib fractures. No abdominal distention. No ecchymosis Results Lab Laboratory Tests 12/25/18 14:05: White Blood Count 18.7H, Red Blood Count 4.49, Hemoglobin 14.3, Hematocrit 43, Mean Corpuscular Volume 96, Mean Corpuscular Hemoglobin 32, Mean Corpuscular Hemoglobin Concent 33, Red Cell Distribution Width 13.9, Platelet Count 213, Mean Platelet Volume 10.1 12/26/18 03:45: White Blood Count 9.8, Red Blood Count 3.78L, Hemoglobin 12.2, Hematocrit 36, Mean Corpuscular Volume 96, Mean Corpuscular Hemoglobin 32, Mean Corpuscular Hemoglobin Concent 34, Red Cell Distribution Width 14.1, Platelet Count 190, Mean Platelet Volume 10.1, Neutrophils (%) (Auto) 72, Lymphocytes (%) (Auto) 17 , Monocytes (%) (Auto) 10, Eosinophils (%) (Auto) 1, Basophils (%) (Auto) 0, Neutrophils # (Auto) 7.1, Lymphocytes # (Auto) 1.7, Monocytes # (Auto) 1.0, Eosinophils # (Auto) 0.1, Basophils # (Auto) 0.0, Sodium Level 139, Potassium Level 3.8, Chloride Level 107, Carbon Dioxide Level 22, Anion Gap 10, Blood Urea Nitrogen 10, Creatinine 0.62, Estimat Glomerular Filtration Rate > 60, BUN/ Creatinine Ratio 16, Glucose Level 102, Calcium Level 8.3L, Phosphorus Level 3.6 , Magnesium Level 2.1 Assessment/Plan Assessment/Plan Assess & Plan/Chief Complaint Lady with multiple rib fractures on the left side. Very small, occult pneumothorax, grade 2 splenic laceration. Stable. Could be discharged home. Recommend outpatient evaluation with an orthopedist regarding clavicle fractures. Follow-up with me in 3 days. Instructed her to avoid strenuous activity, in view of splenic laceration Final Diagnosis and multiple rib fractures on the left side. Splenic laceration. Left clavicle fracture Clinical Quality Measures Admission Status Admission Dx lady with fracture of the left clavicle, multiple left rib fractures with a small pneumothorax. Grade 2 laceration of the spleen. Hemodynamically stable. Hypertension, inadequately controlled. I have requested administering a dose of intravenous prophylactic antibiotics and tetanus toxoid. She'll be observed carefully regarding the splenic laceration. It is likely that nonoperative management would be continued. With regard to the clavicle fracture, a sling would be applied and orthopedic services would be consulted. DVT/VTE Risk/Contraindication: Risk Factor Score Per Nursin RFS Level Per Nursing on Admit: 4+=Very High ELAINE GONZALEZ MD Dec 26, 2018 10:56
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
[2018-12-26] MEDS ORDERED: ACHD5005 PO (10:59)
--- NOTE | 2018-12-26 11:00 | Discharge Inst-Simple/Standard ---
Discharge Inst-Standard Discharge Medications New, Converted or Re-Newed RX: RX on Chart Patient Instructions/Follow Up Plan of Care/Instructions/FU: to continue using incentive spirometry. Follow-up with me on Thursday, the ; please leave a message at 0330. Please have her get an appointment with as an outpatient, regarding left clavicle fracture Activity as Tolerated: No Goal: no strenuous activities. Discharge Diet: No Restrictions Planned Outpatient Orders/Ref. Pneu Vac Indicated: Yes ELAINE GONZALEZ MD Dec 26, 2018 11:00
== END 2018-12-26 12:12 | disposition home or self-care (01) | DRG 964 ==
LOC: EDUNIT# 09:44 → ER 09:45 → ICU 11:44
PROVIDERS: ADMIT Surgery; ATTEND Surgery
PROC: 0HQ1XZZ Repair Face Skin, External Approach (ICD-10-PCS; principal; 2018-12-25)
DX: S36.031A Moderate laceration of spleen, initial encounter (principal); S22.42XA Multiple fractures of ribs, left side, initial encounter for closed fracture; S42.002A Fracture of unspecified part of left clavicle, initial encounter for closed fracture; S27.0XXA Traumatic pneumothorax, initial encounter; S01.422A Laceration with foreign body of left cheek and temporomandibular area, initial encounter; S80.212A Abrasion, left knee, initial encounter; I10 Essential (primary) hypertension; F17.210 Nicotine dependence, cigarettes, uncomplicated; F41.9 Anxiety disorder, unspecified; F32.9 Major depressive disorder, single episode, unspecified; V49.88XA Car occupant (driver) (passenger) injured in other specified transport accidents, initial encounter
CPT/HCPCS: 12014; 36415; 70450; 71045; 71260; 72125; 72170; 74177; 80048; 80076; 80320; 81000; 83735; 84100; 84703; 85025; 85027; 86850; 86900; 86901; 87081; 90715; 93041; 94640; 94664

== ENCOUNTER → 2019-03-30 | Outpatient (CLI) | payer OTHER, BC ==
[~2019-03-30] MED LIST changes: +ACHD5005 PO
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
== END ==
LOC: RAD 07:50
PROVIDERS: ATTEND Nurse Practitioner Family
DX: M47.22 Other spondylosis with radiculopathy, cervical region (principal); M48.03 Spinal stenosis, cervicothoracic region; M25.78 Osteophyte, vertebrae; M50.10 Cervical disc disorder with radiculopathy, unspecified cervical region; V89.2XXA Person injured in unspecified motor-vehicle accident, traffic, initial encounter
CPT/HCPCS: 72141

== ENCOUNTER → 2019-03-31 | Outpatient (CLI) | payer OTHER, BC ==
--- NOTE | 2019-03-31 13:18 | Diagnostic Imaging Report ---
MRI LT UPPER EXT JOINT W/O TECHNIQUE: Multiplanar, multisequence MR imaging of the left shoulder was performed without contrast. COMPARISON: None available. INDICATION: Left shoulder pain. FINDINGS: Rotator cuff: Focal intermediate grade partial-thickness tear of the articular surface of the anterior-most supraspinatus. The tear measures approximately 1 cm in AP direction. No additional rotator cuff tear. No rotator cuff muscle atrophy or edema. Glenoid labrum: Superior glenoid labrum has abnormal signal within it and may represent a nondisplaced superior labral tear. Long head of biceps: Long head of biceps is normally positioned within the bicipital groove. The intracapsular segment is intact. Bones and cartilage: Humeral head is normal in morphology without fracture or focal osseous lesion. There is a nonacute fracture of the distal right clavicle. No glenohumeral chondromalacia. Mild hypertrophic degenerative arthritis of the acromioclavicular joint. Soft tissues: Small glenohumeral joint effusion. No MRI findings to suggest adhesive capsulitis. A small amount of fluid is present in the subacromial and subdeltoid space that may represent bursitis. IMPRESSION: 1. Focal intermediate grade partial-thickness articular-sided tear of the anterior-most supraspinatus. No retracted fibers or muscle atrophy. 2. Potential nondisplaced superior labral tear. 3. Long head of biceps is intact. 4. Subacute to chronic fracture of the distal right clavicle has superior elevation of the medial fracture fragment. Dictated by: Dictated on workstation # [id number]
--- NOTE | 2019-03-31 14:17 | Diagnostic Imaging Report ---
MRI RT UPPER EXT JOINT W/O TECHNIQUE: Multiplanar, multisequence MR imaging of the right shoulder was performed without contrast. COMPARISON: Right shoulder pain. INDICATION: None available FINDINGS: Rotator cuff: Supraspinatus tendinopathy has low-grade partial-thickness interstitial tearing in its mid aspect. No full-thickness retracted tear. The subscapularis, infraspinatus and teres minor are normal. No rotator cuff muscle atrophy. Glenoid labrum: By non-arthrogram imaging, the glenoid labrum appears intact. No para-labral cyst. Long head of biceps: Long head of biceps is normally positioned within the bicipital groove. The intracapsular segment is intact. Bones and cartilage: Humeral head is normal in morphology without fracture or focal osseous lesion. No glenohumeral chondromalacia. Moderate hypertrophic degenerative arthritis of the right acromioclavicular joint. Soft tissues: No glenohumeral joint effusion. No MRI findings to suggest adhesive capsulitis. No fluid or inflammatory like signal within the subacromial/subdeltoid space to indicate bursitis. IMPRESSION: 1. Supraspinatus tendinopathy with low-grade partial-thickness interstitial tear. 2. Long head of biceps is intact. 3. Moderate degenerative changes of the acromioclavicular joint. Dictated by: Dictated on workstation # [id number]
== END ==
LOC: RAD 09:17
PROVIDERS: ATTEND Nurse Practitioner Family
DX: S46.012A Strain of muscle(s) and tendon(s) of the rotator cuff of left shoulder, initial encounter (principal); S43.492A Other sprain of left shoulder joint, initial encounter; S42.031A Displaced fracture of lateral end of right clavicle, initial encounter for closed fracture; M19.011 Primary osteoarthritis, right shoulder; V89.2XXA Person injured in unspecified motor-vehicle accident, traffic, initial encounter
CPT/HCPCS: 73221

== ENCOUNTER → 2019-09-05 | Outpatient (CLI) | payer BC ==
--- NOTE | 2019-09-05 12:11 | Diagnostic Imaging Report ---
INDICATION: Routine screening. COMPARISON: 09/02/2018. TECHNIQUE: 2D and 3D bilateral screening mammography was performed with CAD. FINDINGS: Both breasts are heterogeneously dense, limiting the sensitivity of mammography. The parenchymal pattern is stable. No mass or malignant appearing microcalcifications are seen. The axillae are unremarkable. IMPRESSION: No mammographic features suspicious for malignancy are identified. ACR BI-RADS Category 1: Negative. Result letter will be mailed to the patient. Note: At least 10% of breast cancer is not imaged by mammography. Dictated by: Dictated on workstation # [id number]
== END ==
LOC: RAD 08:03
PROVIDERS: ATTEND Nurse Practitioner
DX: Z12.31 Encounter for screening mammogram for malignant neoplasm of breast (principal)
CPT/HCPCS: 77067

== ENCOUNTER → 2020-06-20 | Outpatient (CLI) | payer BC | LOC: LABNPT 06:07 | PROVIDERS: ATTEND Orthopaedic Surgery | DX: Z01.812 Encounter for preprocedural laboratory examination (principal); Z20.828 Contact with and (suspected) exposure to other viral communicable diseases | CPT/HCPCS: 87635 ==

== ENCOUNTER → 2020-07-06 | Outpatient (CLI) | payer BC ==
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
== END ==
LOC: RAD 11:42
PROVIDERS: ATTEND Nurse Practitioner Family
DX: M19.072 Primary osteoarthritis, left ankle and foot (principal); S99.912A Unspecified injury of left ankle, initial encounter; Z20.828 Contact with and (suspected) exposure to other viral communicable diseases; W50.2XXA Accidental twist by another person, initial encounter
CPT/HCPCS: 73630

== ENCOUNTER 2020-07-16 05:46 | Outpatient (RCR) | payer BC | END 2020-10-14 | LOC: PREOP 05:46 → EDSTATUS 09:45 | PROVIDERS: ATTEND Surgery | DX: Z01.812 Encounter for preprocedural laboratory examination (principal); Z12.11 Encounter for screening for malignant neoplasm of colon ==